=== PATIENT | female | born 1995 | race African-American/Black ===

== ENCOUNTER 2022-08-19 00:25 | Emergency (ER) | payer MEDICAID ==
[~2022-08-19] VITALS: Ht 165.1 cm; Wt 69.0 kg
[2022-08-19 00:33] VITALS: BP 135/102
[2022-08-19] MEDS ORDERED: HYDR-4001 MT (02:10)
[2022-08-19] MEDS ORDERED: HYDROCODONE/ACETAMINOPHEN 5/325MG TABLET PO ONE (02:15)
[2022-08-19] MEDS ORDERED: VISCOUS LIDOCAINE 2% 15 ML UDC MM ONE (02:15)
== END 2022-08-19 02:37 | disposition home or self-care (01) ==
LOC: ER 00:25
DX: G89.18 Other acute postprocedural pain (principal); K08.89 Other specified disorders of teeth and supporting structures
CPT/HCPCS: 99283

== ENCOUNTER 2024-10-24 17:49 | Emergency (ER) | payer OTHER, MEDICAID ==
[~2024-10-24] VITALS: Ht 160 cm; Wt 81.6 kg
[~2024-10-24 17:49] MED LIST: HYDR-4001 MT
[2024-10-24 17:51] VITALS: O2SAT 100
[2024-10-24 18:11] VITALS: BP 139/82; PULSE 79; RESP 16; TEMP 36.6; O2SAT 99
== END 2024-10-24 22:34 | disposition left against medical advice (07) ==
LOC: ER 17:49
DX: M54.2 Cervicalgia (principal); R07.0 Pain in throat; Z53.21 Procedure and treatment not carried out due to patient leaving prior to being seen by health care provider

== ENCOUNTER 2024-10-26 05:51 | Emergency (ER) | payer OTHER, MEDICAID ==
[~2024-10-26] VITALS: Ht 160 cm; Wt 95.0 kg
[2024-10-26 05:55] VITALS: PULSE 78; O2SAT 98
[2024-10-26 05:59] VITALS: BP 137/83; RESP 18; TEMP 37.1; O2SAT 100
[2024-10-26 10:09] LABS: HEMATOCRIT 36.2 % (36.0-48.0); MEAN CORPUSCULAR HGB CONC 33.1 g/dL (31.0-37.0); MEAN CORPUSCULAR VOLUME 90.7 fL (81.0-99.0); PLATELET 367 x1000/uL (130-400); RED BLOOD CELL COUNT 3.99 mill/uL (4.2-5.4); RED CELL DISTRIBUTION WIDTH 13.4 % (11.6-14.6); WHITE BLOOD COUNT 6.4 x1000/uL (4.5-11.0)
[2024-10-26] MEDS: DEXAMETHASONE 10 MG/ML VIAL IM ONE (10:19)
[2024-10-26 10:20] LABS: CHLORIDE 104 mEq/L (98-107); POTASSIUM 4.1 mEq/L (3.5-5.1); SODIUM 140 mEq/L (136-145)
[2024-10-26 10:21] LABS: CALCIUM 9.9 mg/dL (8.7-10.4); CARBON DIOXIDE 26 mEq/L (21-32)
[2024-10-26 10:24] LABS: HCG SCREEN NEGATIVE
[2024-10-26 10:26] LABS: CREATININE 0.6 mg/dL (0.6-1.0); GLUCOSE 102 mg/dL (70-105); UREA NITROGEN BLOOD 7 mg/dL (9-23)
[2024-10-26 10:28] LABS: ALANINE AMINOTRANSFERASE 15 IU/L (10-49); ALBUMIN 4.4 g/dL (3.2-4.8); ASPARTATE AMINOTRANSFERASE 13 IU/L (<34); BILIRUBIN TOTAL 0.3 mg/dL (0.1-1.0); PROTEIN TOTAL 7.4 g/dL (6.0-8.3)
[2024-10-26] MEDS ORDERED: AMOX1TAB16 MT (13:28)
[2024-10-26] MEDS ORDERED: IOHEXOL-300 100 ML BOTTLE ONE (14:26)
[2024-10-26 16:15] LABS: INFLUENZA TYPE A Presumptive Negative (Pres. Neg.)
[2024-10-26 16:16] LABS: INFLUENZA TYPE B Presumptive Negative (Pres. Neg.)
[2024-10-26 16:17] LABS: RESPIRATORY SYNCYTIAL VIRUS Not Detected (Not Detectd)
== END 2024-10-26 14:36 | disposition home or self-care (01) ==
LOC: ER 05:51
DX: H66.90 Otitis media, unspecified, unspecified ear (principal); J02.9 Acute pharyngitis, unspecified; M54.2 Cervicalgia; Z20.822 Contact with and (suspected) exposure to COVID-19
CPT/HCPCS: 80053; 84703; 85027; 87420; 87804 ×2; 36415; 70491; 96372; 99285; 87426; Q9967; J1100; Z7610 ×3; A4606